=== PATIENT | male | born 1960 | race Caucasian/White ===

== ENCOUNTER 2025-06-08 12:30 | Outpatient (RCR) | payer OTHER, SELFPAY | END 2025-08-22 16:50 | disposition home or self-care (01) | LOC: HO.WCC 12:30 | PROVIDERS: PCP Internal Medicine; Visit Provider Surgery | DX: I87.312 Chronic venous hypertension (idiopathic) with ulcer of left lower extremity (principal); L97.822 Non-pressure chronic ulcer of other part of left lower leg with fat layer exposed; L03.116 Cellulitis of left lower limb; I89.0 Lymphedema, not elsewhere classified; Z79.891 Long term (current) use of opiate analgesic; Z79.2 Long term (current) use of antibiotics; Z79.899 Other long term (current) drug therapy | CPT/HCPCS: 11042; 11045; 87070; 87073; 87077; 87186; 87205; 97597; 99203; 99212; 99214 ==